=== PATIENT | male | born 1980 | race Caucasian/White ===

== ENCOUNTER 2023-06-19 14:38 | Emergency (ER) | payer MEDICAID ==
[~2023-06-19] VITALS: Ht 172.7 cm; Wt 89.2 kg
[2023-06-19 15:22] LABS: BASOPHILS # (AUTO) 0.1 X10'3 (0-0.2); BASOPHILS % (AUTO) 1.1 % (0-1); EOSINOPHILS # (AUTO) 0.3 X10'3 (0-0.9); HEMATOCRIT 49.4 % (42.0-52.0); HEMOGLOBIN 16.7 g/dl (14.0-17.9); LYMPHOCYTES # (AUTO) 3.2 X10'3 (1.1-4.8); LYMPHOCYTES % (AUTO) 28.2 % (21-51); MEAN CORPUSCULAR HEMOGLOBIN 29.2 PG (27.0-31.0); MEAN CORPUSCULAR HGB CONC 33.7 g/dL (33.0-36.5); MEAN CORPUSCULAR VOLUME 86.8 FL (78-98); MEAN PLATELET VOLUME 8.2 FL (7.4-10.4); MONOCYTES # (AUTO) 0.5 X10'3 (0-0.9); MONOCYTES % (AUTO) 4.2 % (2-12); NEUTROPHILS # (AUTO) 7.3 X10'3 (1.8-7.7); NEUTROPHILS % (AUTO) 63.5 % (42-75); PLATELET COUNT 236 X10'3 (140-440); RED CELL DISTRIBUTION WIDTH 13.6 % (11.5-14.5); WHITE BLOOD COUNT 11.5 X10'3 (4.5-11.0)
[2023-06-19 15:51] LABS: ALBUMIN 3.7 G/DL (3.4-5.0); ANION GAP 6 (8-16); BLOOD UREA NITROGEN 10 MG/DL (7-18); BUN/CREATININE RATIO 11.6 (10.0-20.0); CALCIUM 9.2 MG/DL (8.5-10.1); CHLORIDE 105 MMOL/L (99-107); CREATININE 0.86 MG/DL (0.60-1.10); GLUCOSE 113 MG/DL (70-104); POTASSIUM 3.8 MMOL/L (3.5-5.1); PRO BRAIN NATRIURETIC PEPTIDE 31 PG/ML (0-125); SODIUM 137 MMOL/L (135-145); TOTAL CARBON DIOXIDE 26.5 MMOL/L (24-32); eCRCL 110 ML/MIN; eGFR > 90 ML/MIN
[2023-06-19] MEDS: ipratropium/albuterol 3ml nebule NEB ONE (19:36)
[2023-06-19 19:38] VITALS: PULSE 74; RESP 18; O2SAT 98
[2023-06-19 19:47] VITALS: PULSE 69; RESP 16; O2SAT 98
[2023-06-19] MEDS: methylPREDNISolone sod succ 125mg/2ml vial IV ONE (19:58)
[2023-06-19 20:03] VITALS: BP 154/104; PULSE 74; RESP 14; TEMP 97.7; O2SAT 96
[2023-06-19] MEDS ORDERED: ALBU6.7H14 INH (20:03)
[2023-06-19] MEDS ORDERED: DEC4T PO (20:04)
[2023-06-19] MEDS ORDERED: AZIT-164 PO (20:05)
[2023-06-19] MEDS: predniSONE 20 mg tablet PO ONE (20:12)
[2023-06-19] MEDS: azithromycin 250mg tablet PO ONE (20:14)
== END 2023-06-19 20:31 | disposition home or self-care (01) ==
LOC: ER 14:39
DX: J40 Bronchitis, not specified as acute or chronic (principal); F17.200 Nicotine dependence, unspecified, uncomplicated; F12.90 Cannabis use, unspecified, uncomplicated; Z88.0 Allergy status to penicillin; Z79.899 Other long term (current) drug therapy; Z79.2 Long term (current) use of antibiotics
CPT/HCPCS: 36415; 71045; 80048; 83880; 84484; 85025; 93005; 94640; 99285; J7512; 94760